=== PATIENT | female | born 1985 | race Caucasian/White ===

== ENCOUNTER 2017-10-27 14:08 | Outpatient (CLI) | payer OTHER ==
--- NOTE | 2017-10-27 17:07 | ULT ---
PELVIC SONOGRAM TRANSABDOMINAL AND TRANSVAGINAL IMAGING WITH DUPLEX EVALUATION: History: Left pelvic pain. FINDINGS: Urinary bladder is incompletely distended. Uterus has a heterogeneous echo texture and is 7.1 cm. End ometrium is 0.6 cm. No free fluid. Right ovary is 2.1 cm. Follicles arise from each ovary. Good color and spectral doppler flow. IMPRESSION: No significant abnormalities are demonstrated. POS: DEBORAH
== END 2017-10-27 14:09 | disposition home or self-care (01) ==
LOC: SCSULT 14:08
PROVIDERS: ATTEND Internal Medicine
DX: R10.32 Left lower quadrant pain (principal)
CPT/HCPCS: 76856; 81003; 81015